=== PATIENT | male | born 1985 | race Caucasian/White ===

== ENCOUNTER 2017-07-06 05:36 | Emergency (ER) | payer BC ==
[2017-07-06 05:43] VITALS: BP 128/82; PULSE 105; RESP 16; TEMP 98.3
[2017-07-06] MEDS ORDERED: PENICILLIN VK 500MG STARTER 4 TAB BTL PO STA (06:08)
[2017-07-06] MEDS ORDERED: IBUPROFEN 600 MG TAB PO STA (06:08)
--- NOTE | 2017-07-06 06:11 | ED ---
ENT HPI - General Chief complaint: ENT Stated complaint: Facial Swelling Time Seen by Provider: 07/06/17 05:56 Source: patient Mode of arrival: ambulatory Limitations: no limitations - History of Present Illness Initial comments: this patient is a 31-year-old man who presents to be evaluated for swelling and pain to the right mandibular area. Patient states that he had a little bit of a toothache last night and went to bed, but when he woke up this morning there was a moderate amount of swelling and the pain was a bit worse. He states that he does have history of "bad teeth." Patient denies any fever or chills, any difficulty with speech or swallowing, trouble with breathing, pain going down into the neck. MD complaint: tooth pain -: hour(s) Location: other (right mandibular) Severity: moderate Quality: aching Consistency: constant Improves with: none Worsens with: none Context- Dental: history of dental caries Associated Symptoms: gum swelling, toothache - Related Data Previous Rx's Medication Instructions Recorded Acetaminophen-Codeine 300-30mg 1 tab PO Q4H PRN #20 tablet 07/06/17 [Tylenol w/codeine #3] Ibuprofen [Motrin] 600 mg PO Q8HR PRN #20 tab 07/06/17 Penicillin V Potassium [Pen Vee K] 500 mg PO Q6H #28 tablet 07/06/17 Allergies Allergy/AdvReac Type Severity Reaction Status Date / Time Sulfa (Sulfonamide Allergy Rash/Hives Verified 07/06/17 05:43 Antibiotics) Review of Systems ROS Statement: Those systems with pertinent positive or pertinent negative responses have been documented in the HPI. ROS Other: All systems not noted in ROS Statement are negative. Past Medical History Additional Past Medical History / Comment(s): ulcerative colitis. History of Any Multi-Drug Resistant Organisms: None Reported Additional Past Surgical History / Comment(s): right ankle. Past Psychological History: No Psychological Hx Reported Smoking Status: Current every day smoker Past Alcohol Use History: None Reported Past Drug Use History: None Reported General Exam Limitations: no limitations General appearance: alert, in no apparent distress Head exam: Present: atraumatic, normocephalic Eye exam: Present: normal appearance. Absent: scleral icterus, conjunctival injection, periorbital swelling ENT exam: Present: mucous membranes moist, TM's normal bilaterally, normal external ear exam, other (patient has extensive caries throughout. He does have some soft tissue swelling adjacent to the right mandible. There is no area of fluctuance or definite abscess. There is no sublingual or neck tenderness, fullness or swelling.) Neck exam: Present: normal inspection, full ROM. Absent: tenderness, meningismus, lymphadenopathy Respiratory exam: Present: normal lung sounds bilaterally. Absent: respiratory distress, wheezes, rales, rhonchi, stridor Cardiovascular Exam: Present: regular rate, normal rhythm, normal heart sounds. Absent: systolic murmur, diastolic murmur, rubs, gallop Skin exam: Present: warm, dry, intact, normal color. Absent: rash Course Vital Signs 07/06/17 05:40 Temperature 98.3 F Pulse Rate 105 H Respiratory 16 Rate Blood Pressure 128/82 O2 Sat by Pulse 100 Oximetry Medical Decision Making - Medical Decision Making patient is 31-year-old man with dental pain and swelling along the right mandible. No evidence of any Durga angina or spread into the spaces of the neck. there does not appear to be an abscess that I am able to drain yet. Discussed appropriate further care and follow-up as well as any return parameters and started on antibiotics here. Disposition Clinical Impression: Dental caries Disposition: HOME SELF-CARE Condition: Fair Instructions: Toothache (ED) Prescriptions: Acetaminophen-Codeine 300-30mg [Tylenol w/codeine #3] 1 tab PO Q4H PRN #20 tablet PRN Reason: Pain Ibuprofen [Motrin] 600 mg PO Q8HR PRN #20 tab PRN Reason: Pain Penicillin V Potassium [Pen Vee K] 500 mg PO Q6H #28 tablet Referrals: None,Stated [Primary Care Provider] - 1-2 days
== END 2017-07-06 06:25 | disposition home or self-care (01) ==
LOC: EC 05:36
DX: K02.9 Dental caries, unspecified (principal); F17.200 Nicotine dependence, unspecified, uncomplicated; Z88.2 Allergy status to sulfonamides
CPT/HCPCS: 99283

== ENCOUNTER 2017-07-07 02:08 | Emergency (ER) | payer BC ==
[2017-07-07 02:17] VITALS: BP 128/85; PULSE 83; RESP 18; TEMP 98.6
[2017-07-07] MEDS ORDERED: BUPIVACAINE (PF) 0.5% 30 ML VIAL SQ STA (02:24)
--- NOTE | 2017-07-07 02:29 | ED ---
ENT HPI - General Chief complaint: Dental/Oral Stated complaint: Dental Pain Time Seen by Provider: 07/07/17 02:19 Source: patient, RN notes reviewed, old records reviewed Mode of arrival: ambulatory Limitations: no limitations - History of Present Illness Initial comments: is a 31-year-old male for a revisit for right-sided dental pain and swelling. Patient was evaluated early yesterday morning, started on Pen-Vee K, Tylenol with codeine and Motrin. He reports that he feels like the swelling is getting a bit worse. The pain has not been managed with Tylenol codeine and Motrin. Patient states he try to see a dentist today, but he missed the appointment by 20 minutes. Patient states that he has a history of "bad teeth" . Patient states that he has never had a dental infection such as this. He reports he feels chilled, denies any specific fevers. Denies any difficulty breathing. He reports that the swelling in his gums increased, and he feels like it is pressing on his tongue as well. Patient states that he has no neck swelling. - Related Data Previous Rx's Medication Instructions Recorded Acetaminophen-Codeine 300-30mg 1 tab PO Q4H PRN #20 tablet 07/06/17 [Tylenol w/codeine #3] Ibuprofen [Motrin] 600 mg PO Q8HR PRN #20 tab 07/06/17 Penicillin V Potassium [Pen Vee K] 500 mg PO Q6H #28 tablet 07/06/17 Clindamycin [Cleocin] 450 mg PO TID 7 Days capsule 07/07/17 Allergies Allergy/AdvReac Type Severity Reaction Status Date / Time Sulfa (Sulfonamide Allergy Rash/Hives Verified 07/07/17 02:17 Antibiotics) Review of Systems ROS Statement: Those systems with pertinent positive or pertinent negative responses have been documented in the HPI. ROS Other: All systems not noted in ROS Statement are negative. Constitutional: Denies: chills Eyes: Denies: eye pain ENT: Reports: dental pain. Denies: throat pain Respiratory: Denies: cough, dyspnea Cardiovascular: Denies: chest pain, palpitations Endocrine: Denies: fatigue Gastrointestinal: Denies: abdominal pain Genitourinary: Denies: dysuria Musculoskeletal: Denies: back pain Skin: Denies: rash, lesions Psychiatric: Denies: anxiety Hematological/Lymphatic: Denies: easy bleeding Past Medical History Additional Past Medical History / Comment(s): ulcerative colitis. History of Any Multi-Drug Resistant Organisms: None Reported Additional Past Surgical History / Comment(s): right ankle. Past Psychological History: No Psychological Hx Reported Smoking Status: Current every day smoker Past Alcohol Use History: None Reported Past Drug Use History: None Reported General Exam - General Exam Comments Initial Comments: 31-year-old male. No acute distress. Limitations: no limitations General appearance: alert, in no apparent distress Head exam: Present: atraumatic, normocephalic, normal inspection Eye exam: Present: normal appearance, PERRL, EOMI. Absent: scleral icterus, conjunctival injection, periorbital swelling ENT exam: Present: normal exam, mucous membranes moist, TM's normal bilaterally , other (Right sided lower mandibular swelling.). Absent: normal oropharynx ( Patient is extremely poor dentition, multiple dental caries and broken tooth. Patient has swelling over tooth #29, 30.) Neck exam: Present: normal inspection, other (No neck swelling. No signs of Durga angina.). Absent: tenderness, meningismus, lymphadenopathy Respiratory exam: Present: normal lung sounds bilaterally. Absent: respiratory distress, wheezes, rales, rhonchi, stridor Cardiovascular Exam: Present: regular rate, normal rhythm, normal heart sounds. Absent: systolic murmur, diastolic murmur, rubs, gallop, clicks GI/Abdominal exam: Present: soft, normal bowel sounds. Absent: distended, tenderness, guarding, rebound, rigid Extremities exam: Present: normal inspection, full ROM, normal capillary refill. Absent: tenderness, pedal edema, joint swelling, calf tenderness Back exam: Present: normal inspection Neurological exam: Present: alert, oriented X3, CN II-XII intact Psychiatric exam: Present: normal affect, normal mood Skin exam: Present: warm, dry, intact, normal color. Absent: rash Course Vital Signs 07/07/17 02:14 Temperature 98.6 F Pulse Rate 83 Respiratory 18 Rate Blood Pressure 128/85 O2 Sat by Pulse 98 Oximetry Procedures - Nerve Block Local Anesthetic Used: Marcaine 0.5% Amount of anesthesia used: 4 Side: right Intraoral Nerve Block: inferior alveolar Procedure Successful: Yes Patient Tolerated Procedure: well, no complications Medical Decision Making - Medical Decision Making is a 31-year-old male presents emergency Department chief complaint of right-sided dental pain for approximately 2 days. He was seen in the emergency department yesterday for swelling. Started on Pen-Vee K. He's had 2 doses of the antibiotics at this time. Patient reports the pain was increasing, any feeling the swelling became a little bit worse. Patient at this time has very poor dentition, but there is no focal abscess that I feel it can be drained. He does have some swelling over the right mandible. No signs of Durga angina or neck swelling. No difficulty breathing. Patient did receive an inferior alveolar block. The procedure was successful and patient reports that his pain is now diminished. Discussed the patient to continue to take the previously prescribed pain medication as Motrin and Tylenol codeine that was prescribed yesterday. Discussed that he should continue the penicillin, and if it does not get any better within the next day, patient should switch to clindamycin. Seminal write the patient for clindamycin for him to have on hand. Discussed close follow-up with dentist and primary care provider. Discussed strict return parameters. Patient understands treatment plan will comply. Return parameters were discussed. Disposition Clinical Impression: Dental infection Disposition: HOME SELF-CARE Condition: Good Instructions: Toothache (ED) Additional Instructions: [facility] [address] [place] [address] [phone] (existing clients only) For new clients: [phone] 1st consult: $50 (includes Xrays) Usually 30% less then private dentist for visits after. [employer] Have to pay $50 for Xrays anmd rest is covered. [phone] Patient advised to continue the Pen-Vee K, first other day. There is no improvement switch to the clindamycin antibiotic. Prescriptions: Clindamycin [Cleocin] 450 mg PO TID 7 Days capsule Referrals: None,Stated [Primary Care Provider] - 1-2 days Time of Disposition: 02:45
== END 2017-07-07 02:50 | disposition home or self-care (01) ==
LOC: EC 02:08
DX: K04.7 Periapical abscess without sinus (principal); F17.200 Nicotine dependence, unspecified, uncomplicated; Z88.2 Allergy status to sulfonamides
CPT/HCPCS: 64400; 99283

== ENCOUNTER 2017-09-27 06:08 | Emergency (ER) | payer BC ==
[2017-09-27 06:15] VITALS: BP 132/78; PULSE 80; RESP 18; TEMP 97.8
--- NOTE | 2017-09-27 06:43 | ED ---
ENT HPI - General Chief complaint: Dental/Oral Stated complaint: dental abscess Time Seen by Provider: 09/27/17 06:34 Source: patient Mode of arrival: ambulatory Limitations: no limitations - History of Present Illness MD complaint: tooth pain Onset/Timin -: days(s) Quality: aching Consistency: constant Improves with: none Worsens with: none Context- Dental: history of dental caries - Related Data Previous Rx's Medication Instructions Recorded Ibuprofen [Motrin] 600 mg PO Q8HR PRN #20 tab 09/27/17 Penicillin V Potassium [Pen Vee K] 500 mg PO Q6H #28 tablet 09/27/17 Allergies Allergy/AdvReac Type Severity Reaction Status Date / Time Sulfa (Sulfonamide Allergy Rash/Hives Verified 09/27/17 06:11 Antibiotics) Review of Systems ROS Statement: Those systems with pertinent positive or pertinent negative responses have been documented in the HPI. ROS Other: All systems not noted in ROS Statement are negative. Constitutional: Denies: fever, chills, weakness ENT: Reports: as per HPI, dental pain Respiratory: Denies: cough, dyspnea Cardiovascular: Denies: chest pain, palpitations Neurological: Denies: headache, weakness, numbness Past Medical History Additional Past Medical History / Comment(s): ulcerative colitis. History of Any Multi-Drug Resistant Organisms: None Reported Additional Past Surgical History / Comment(s): right ankle. Past Psychological History: No Psychological Hx Reported Smoking Status: Current every day smoker Past Alcohol Use History: Occasional Past Drug Use History: None Reported General Exam Limitations: no limitations General appearance: alert, in no apparent distress Head exam: Present: atraumatic, normocephalic Eye exam: Present: normal appearance. Absent: scleral icterus, conjunctival injection ENT exam: Present: mucous membranes moist, TM's normal bilaterally, normal external ear exam, other (Patient has dental caries but no abscess.) Neck exam: Present: full ROM. Absent: tenderness, lymphadenopathy Respiratory exam: Present: normal lung sounds bilaterally. Absent: respiratory distress, wheezes, rales, rhonchi, stridor Cardiovascular Exam: Present: regular rate, normal rhythm Course Vital Signs 09/27/17 06:10 Temperature 97.8 F Pulse Rate 80 Respiratory 18 Rate Blood Pressure 132/78 O2 Sat by Pulse 100 Oximetry Disposition Clinical Impression: Dental caries, Fracture of tooth Disposition: HOME SELF-CARE Condition: Good Instructions: Dental Caries (ED), Toothache (ED) Prescriptions: Ibuprofen [Motrin] 600 mg PO Q8HR PRN #20 tab PRN Reason: Pain Penicillin V Potassium [Pen Vee K] 500 mg PO Q6H #28 tablet Referrals: None,Stated [Primary Care Provider] - 1-2 days
[2017-09-27] MEDS ORDERED: IBUPROFEN 600 MG TAB PO STA (06:45)
[2017-09-27] MEDS ORDERED: PENICILLIN VK 500MG STARTER 4 TAB BTL PO STA (06:46)
== END 2017-09-27 06:52 | disposition home or self-care (01) ==
LOC: EC 06:08
DX: S02.5XXA Fracture of tooth (traumatic), initial encounter for closed fracture (principal); K02.9 Dental caries, unspecified; F17.200 Nicotine dependence, unspecified, uncomplicated; Z88.2 Allergy status to sulfonamides; X58.XXXA Exposure to other specified factors, initial encounter
CPT/HCPCS: 99282

== ENCOUNTER 2018-06-28 07:19 | Emergency (ER) | payer OTHER ==
[2018-06-28 07:31] VITALS: RESP 18
[2018-06-28] MEDS ORDERED: LIDOCAINE 1% INJ 10MG/ML (20 ML MDV) SQ STA (08:04)
[2018-06-28] MEDS ORDERED: TOPICAL SKIN ADHESIVE 1 EACH AMP TOPICAL ONE (08:05)
--- NOTE | 2018-06-28 08:33 | ED ---
General Adult HPI - General Chief complaint: Wound/Laceration Stated complaint: Hand Lac Source: patient, RN notes reviewed, old records reviewed Mode of arrival: ambulatory Limitations: no limitations - History of Present Illness Initial comments: 32-year-old male patient presents to ED with multiple lacerations to right hand. Patient states that when he was leaving for work he tripped over his dog putting his hand against a glass door which broke causing multiple lacerations to his right hand. Patient has multiple small lacerations to his second, third and fourth digit. 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 Patient declines to have his tetanus updated today. Patient denies all other injuries associated with the fall. Denies head trauma, loss of consciousness, ocular irritation. Patient denies all other complaints. Systemic: Pt denies fatigue, myalgia, fever/chills, rash. Pt denies weakness, night sweats, weight loss. Neuro: Pt denies headache, visual disturbances, syncope or pre-syncope. HEENT: Pt denies ocular discharge or irritation, otalgia, rhinorrhea, pharyngitis or notable lymphadenopathy. Cardiopulmonary: Pt denies chest pain, SOB, heart palpitations, dyspnea on exertion. Abdominal/GI: Pt denies abdominal pain, n/v/d. : Pt denies dysuria, burning w/ urination, frequency/urgency. Denies new onset urinary or bowel incontinence. MSK: Pt denies myalgia, loss of strength or function in extremities. - Related Data Previous Rx's Medication Instructions Recorded Cephalexin [Keflex] 500 mg PO Q12HR 7 Days #14 cap 06/28/18 Allergies Allergy/AdvReac Type Severity Reaction Status Date / Time Sulfa (Sulfonamide Allergy Rash/Hives Verified 06/28/18 08:15 Antibiotics) Review of Systems ROS Statement: Those systems with pertinent positive or pertinent negative responses have been documented in the HPI. ROS Other: All systems not noted in ROS Statement are negative. Past Medical History Additional Past Medical History / Comment(s): ulcerative colitis. History of Any Multi-Drug Resistant Organisms: None Reported Additional Past Surgical History / Comment(s): right ankle surgery Past Psychological History: No Psychological Hx Reported Smoking Status: Current every day smoker Past Alcohol Use History: Occasional Past Drug Use History: None Reported General Exam - General Exam Comments Initial Comments: Constitutional: NAD, AOX3, Pt has pleasant affect. HEENT: NC/AT, trachea midline, neck supple. Mucous membranes moist. Eyes PERRLA , EOM intact. There is no scleral icterus. No pallor noted. Cardiopulmonary: RRR, no murmurs, rubs or gallops, no JVD noted. Lungs CTAB in anterior and posterior santana. No peripheral edema. Abdominal exam: Abdomen soft and non-distended. Abdomen non-tender to palpation in all 4 quadrants. Bowel sounds active in LLQ. No hepatosplenomegaly. Neuro: CN II-XII grossly intact. MSK: Small superficial abrasions and lacerations noted on R hand. Superficial laceration on 2nd and 4th PIP joint closed in sterile fashion with 1 simple interrupted suture. Small superficial lacerations on 2nd 3rd and 5th closed via xylofin. Pt hand wrapped with bacitracin and gauze. Limitations: no limitations Course Vital Signs 06/28/18 07:28 Temperature 97.8 F Pulse Rate 105 H Respiratory 18 Rate Blood Pressure 122/74 O2 Sat by Pulse 98 Oximetry Procedures - Laceration Laceration #1 Consent Obtained: verbal consent Indication: laceration Site: hand (2nd PIP joint R hand) Size (cm): 1 Description: linear Depth: simple, single layer Sedation/Analgesia: none Anesthetic Used: lidocaine 1% Anesthesia Technique: local infiltration Amount (mls): 1 Pre-repair: wound explored, irrigated extensively Type of Sutures: other (ethylon) Size of Sutures: 4-0 Number of Sutures: 1 Technique: simple, interrupted Patient Tolerated Procedure: well Laceration #2 Consent Obtained: verbal consent Indication: laceration Site: hand (4th PIP R hand) Size (cm): 1 Description: linear Depth: simple, single layer Anesthetic Used: lidocaine 2% Anesthesia Technique: local infiltration Amount (mls): 1 Pre-repair: wound explored, irrigated extensively Type of Sutures: other (ethylon) Number of Sutures: 1 Technique: simple, interrupted Patient Tolerated Procedure: well Medical Decision Making - Medical Decision Making 32-year-old male patient presented to ED after sustaining multiple small lacerations to right hand. Plain film of hand did not display any acute fracture or radioopaque foreign bodies. Patient had tetanus updated approximately 5 years ago, declined to update tetanus today. 2 simple interrupted sutures were placed on his second and fourth PIP joint. There is small lacerations and MCP joint of second third and fifth right hand were closed via Xylo-Pfan. Laceration was repaired in a sterile fashion. 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 Patient to be off work today, when returning to work will wear a glove to keep hand clean. Patient to follow up with PCP in 1-2 days. Sutures removed in 10 days by PCP. Pt to return to ED if rerdness, discharge or pain on hand develop OR systemic signs such as fever/chills, OR any other new complaints. Disposition Clinical Impression: Laceration Disposition: HOME SELF-CARE Condition: Good Prescriptions: Cephalexin [Keflex] 500 mg PO Q12HR 7 Days #14 cap Is patient prescribed a controlled substance at d/c from ED?: No Referrals: None,Stated [Primary Care Provider] - 1-2 days Time of Disposition: 09:10
--- NOTE | 2018-06-28 08:39 | XR ---
EXAMINATION TYPE: XR hand complete RT DATE OF EXAM: 06/28/2018 CLINICAL HISTORY: Right hand pain with lacerations at the second, third, and fourth digits TECHNIQUE: Frontal, lateral and oblique images of the right hand are obtained. COMPARISON: 12/04/2013 FINDINGS: There is no acute fracture/dislocation evident in the right hand. The joint spaces in the right hand appear within normal limits. Well-corticated punctate fragment near the ulnar styloid is u nchanged from the exam of 2013 and may represent a small accessory ossicle or sequela of prior trauma . No radiopaque foreign body is appreciated. No subcutaneous emphysema. The overlying soft tissue ap pears unremarkable. IMPRESSION: There is no acute fracture or dislocation in the right hand. No radiopaque foreign body.
[2018-06-28 09:42] VITALS: BP 126/72; PULSE 84; TEMP 98
== END 2018-06-28 09:35 | disposition home or self-care (01) ==
LOC: EC 07:19
DX: S61.210A Laceration without foreign body of right index finger without damage to nail, initial encounter (principal); S61.212A Laceration without foreign body of right middle finger without damage to nail, initial encounter; S61.214A Laceration without foreign body of right ring finger without damage to nail, initial encounter; S61.216A Laceration without foreign body of right little finger without damage to nail, initial encounter; F17.200 Nicotine dependence, unspecified, uncomplicated; Z88.2 Allergy status to sulfonamides; W01.118A Fall on same level from slipping, tripping and stumbling with subsequent striking against other sharp object, initial encounter; Y93.89 Activity, other specified
CPT/HCPCS: 12001; 99283

== ENCOUNTER 2019-08-01 20:11 | Emergency (ER) | payer OTHER ==
[2019-08-01 20:20] VITALS: BP 156/79; PULSE 96; RESP 18; TEMP 98.6
[2019-08-01] MEDS ORDERED: ONDANSETRON 4 MG ODT STARTER PACK 2 TAB BTL PO STA (20:33)
--- NOTE | 2019-08-01 20:33 | ED ---
General Adult HPI - General Chief complaint: Nausea/Vomiting/Diarrhea Stated complaint: nausea Time Seen by Provider: 08/01/19 20:22 Source: patient Mode of arrival: ambulatory Limitations: no limitations - History of Present Illness Initial comments: Ramiro is a 33-year-old woman presents to the emergency Department today requesting a work note. Patient reports he woke up earlier today felt nauseated, did not vomit but wasn't feeling well so he went back to bed and missed his shift at work today. Versed after waking up this afternoon realizing he missed his shift he was able to drink 2 bottles of Gatorade and hold those down he's not concerned that he is dehydrated he reports he's feeling better this evening but needs a work note. - Related Data Previous Rx's Medication Instructions Recorded Cephalexin [Keflex] 500 mg PO Q12HR 7 Days #14 cap 06/28/18 Allergies Allergy/AdvReac Type Severity Reaction Status Date / Time Sulfa (Sulfonamide Allergy Rash/Hives Verified 08/01/19 20:20 Antibiotics) Review of Systems ROS Statement: Those systems with pertinent positive or pertinent negative responses have been documented in the HPI. ROS Other: All systems not noted in ROS Statement are negative. Past Medical History Additional Past Medical History / Comment(s): ulcerative colitis. History of Any Multi-Drug Resistant Organisms: None Reported Additional Past Surgical History / Comment(s): right ankle surgery Past Psychological History: No Psychological Hx Reported Smoking Status: Current every day smoker Past Alcohol Use History: Occasional Past Drug Use History: Marijuana General Exam - General Exam Comments Initial Comments: Physical Exam GENERAL: Patient is well-developed and well-nourished. Patient is nontoxic and well-hydrated and is in no distress. HENT: Normocephalic, Atraumatic. His membranes are moist no signs of dehydration EYES: PERRL, EOMI PULMONARY: Unlabored respirations. CARDIOVASCULAR: RRR Warm and well perfused extremities ABDOMEN: Soft, nontender, Non-distended SKIN: No rashes or bruising : Deferred NEUROLOGIC: Alert and oriented Normal speech Normal gait MUSCULOSKELETAL: Moving all extremities with no apparent injury PSYCHIATRIC: No SI/HI Limitations: no limitations Course Vital Signs 08/01/19 20:18 Temperature 98.6 F Pulse Rate 96 Respiratory 18 Rate Blood Pressure 156/79 O2 Sat by Pulse 98 Oximetry Medical Decision Making - Medical Decision Making The patient was seen and evaluated, history is obtained from the patient This is a 33-year-old male with history of ulcerative colitis who missed work today because he had nausea and slept through shift. Patient is well-appearing no acute distress normal vital signs. Medical screening exam was completely and there is no indication at this time for further workup. Patient's comfortable with this plan. Patient was given a work note for today and will return to work tomorrow. Disposition Clinical Impression: Nausea alone Disposition: HOME SELF-CARE Condition: Stable Instructions (If sedation given, give patient instructions): Acute Nausea and V omiting (ED) Is patient prescribed a controlled substance at d/c from ED?: No Referrals: Rey Bowen MD [Primary Care Provider] - 1-2 days
== END 2019-08-01 20:47 | disposition home or self-care (01) ==
LOC: EC 20:11
DX: R11.0 Nausea (principal); F17.200 Nicotine dependence, unspecified, uncomplicated; Z88.2 Allergy status to sulfonamides
CPT/HCPCS: 99283; S0119